=== PATIENT | female | born 1965 | race Caucasian/White ===

== ENCOUNTER → 2020-08-21 | Outpatient (CLI) | payer OTHER ==
--- NOTE | 2020-08-21 12:59 | XR ---
EXAMINATION TYPE: XR lumbosacral spine min 4V DATE OF EXAM: 08/21/2020 Comparison: None Clinical History: 55-year-old female M54.5 low back pain Findings: There appears to be a transitional lumbosacral segment is noted as a sacralized L5. There may be some bony bridging across the posterior elements of L4-L5 as well. Hypertrophic facet arthropathy through out. Alignment is maintained and vertebral body heights are preserved. Impression: Consider CT for further assessment of the bony anatomy. There appears to be a sacralized L5 vertebral body segment and there may be some bony bridging across the posterior elements at L4-L5 as well. Hyp ertrophic facet arthropathy throughout. No vertebral compression collapse or malalignment.
== END | disposition home or self-care (01) ==
LOC: RADXRMAIN 12:01
PROVIDERS: ATTEND Family Medicine
DX: M47.817 Spondylosis without myelopathy or radiculopathy, lumbosacral region (principal)
CPT/HCPCS: 72110